=== PATIENT | female | born 1965 | race African-American/Black ===

== ENCOUNTER 2018-11-24 22:36 | Emergency (ER) | payer SELFPAY ==
[~2018-11-24] VITALS: Ht 177.8 cm; Wt 79.4 kg
[2018-11-24 22:40] VITALS: Ht 177.8 cm; Wt 79.4 kg
[2018-11-24 23:29] LABS: CALCIUM 8.3 mg/dL (8.5-10.1); CARBON DIOXIDE 26.8 mmol/L (21-32); CHLORIDE SERUM 105 mmol/L (98-107); GFR1 > 60 mL/min; GLUCOSE SERUM 118 mg/dL (74-106); POTASSIUM SERUM 4.1 mmol/L (3.5-5.1); SODIUM SERUM 141 mmol/L (136-145)
[2018-11-24 23:33] LABS: ALBUMIN 3.4 g/dL (3.4-5.0); ALKALINE PHOSPHATASE 68 U/L (46-116); ALT/SGPT 32 U/L (14-59); AST/SGOT 56 U/L (15-37); BILIRUBIN TOTAL 0.2 mg/dL (0.20-1.00); LIPASE 179 IU/L (73-393)
[2018-11-24 23:53] LABS: PLATELET COUNT 201 x10^3mcL (130-400)
[2018-11-24 23:56] LABS: RED CELL DISTRIBUTION WIDTH 18.5 % (11.5-14.5)
[2018-11-25 00:27] LABS: BAND NEUTROPHIL 8 % (0-10); SEGMENTED NEUTROPHILS 70 % (37-75); rbc morphology (normal/abnorm) ABNORMAL (NORMAL)
[2018-11-25 00:28] LABS: PLATELET MORPHOLOGY LARGE PLATELET SEEN
[2018-11-25 00:45] VITALS: BP 128/68
== END 2018-11-25 00:45 | disposition left against medical advice (07) ==
LOC: ED 22:36
PROVIDERS: Emergency Medicine
DX: R10.84 Generalized abdominal pain (principal); R11.2 Nausea with vomiting, unspecified; R19.7 Diarrhea, unspecified; R63.0 Anorexia; Z88.6 Allergy status to analgesic agent; Z98.84 Bariatric surgery status
CPT/HCPCS: 36415; J2270; J2405; J7030